=== PATIENT | female | born 1950 | race Caucasian/White ===

== ENCOUNTER 2017-11-14 17:38 | Emergency (ER) | payer OTHER, MEDICARE ==
[2017-11-14 17:59] VITALS: BP 132/87; PULSE 112; TEMP 99; BMI 23.6
[2017-11-14] MEDS ORDERED: SODIUM CHLORIDE 1,000 ML IV STA ×2 (19:54→19:56)
[2017-11-14] MEDS ORDERED: KETOROLAC TROMETHAMINE 30 MG/1 ML VIAL IVPUSH ONE (19:55)
[2017-11-14] MEDS ORDERED: PANTOPRAZOLE SODIUM 40 MG in SODIUM CHLORIDE 100 ML IVPB ONE (19:55)
[2017-11-14] MEDS ORDERED: ONDANSETRON 4 MG/2 ML VIAL IVPUSH STA (19:55)
--- NOTE | 2017-11-14 19:56 | PDOC ---
History of Present Illness - General History Source: Patient Exam Limitations: No Limitations - History of Present Illness Initial Comments: 11/14/17 20:04 The patient is a 66 year old female with a significant PMH of HTN, hyperlipidemia, and hypothyroidism who presents to the emergency department with abdominal pain, vomiting, and diarrhea beginning approximately this morning. She describes her abdominal pain as a cramping sensation with associated nausea. The patient reports she has been unable to tolerate solid PO today and has only drank some water. The patient denies any sick contacts. She denies fevers or chills. The patient denies chest pain, shortness of breath, headache, and dizziness. Denies dysuria, frequency, urgency and hematuria. Allergies: Codeine, Sulfonamide antibiotics. Past surgical history: Cholecystectomy. Spinal fusion. Social history: No reported cigarette, alcohol, or drug use. PCP: Dr. Rio Alford <Leobardo Lang - Last Filed: 11/14/17 20:04> - General History Source: Patient <Lowell Laura - Last Filed: 11/14/17 22:42> - General Chief Complaint: Pain Stated Complaint: S.O.B Time Seen by Provider: 11/14/17 19:46 Past History <Leobardo Lang - Last Filed: 11/14/17 20:04> - Past Medical History COPD: No HTN: Yes Hypercholesterolemia: Yes Thyroid Disease: Yes - Surgical History Cholecystectomy: Yes - Suicide/Smoking/Psychosocial Hx Smoking History: Never smoked Hx Alcohol Use: Yes (SOCIAL) Drug/Substance Use Hx: No <Lowell Laura - Last Filed: 11/14/17 22:42> - Past Medical History Allergies/Adverse Reactions: Allergies Allergy/AdvReac Type Severity Reaction Status Date / Time codeine Allergy Verified 11/14/17 17:59 Sulfa (Sulfonamide Allergy Verified 11/14/17 17:59 Antibiotics) Home Medications: Ambulatory Orders Ondansetron [Zofran *Odt*] 4 mg SL TID #30 od.tablet 11/14/17 Review of Systems - Review of Systems Able to Perform ROS?: Yes Comments:: 11/14/17 20:04 CONSTITUTIONAL: (+) Decreased appetite Absent: fever, chills, diaphoresis, generalized weakness, malaise HEENT: Absent: rhinorrhea, nasal congestion, throat pain, throat swelling, difficulty swallowing, mouth swelling, ear pain, eye pain, visual Changes CARDIOVASCULAR: Absent: chest pain, syncope, palpitations, irregular heart rate, lightheadedness , peripheral edema RESPIRATORY: Absent: cough, shortness of breath, dyspnea with exertion, orthopnea, wheezing, stridor, hemoptysis GASTROINTESTINAL: (+) Cramping abdominal pain. (+) Nausea. (+) Vomiting. (+) Diarrhea. Absent: abdominal distension, constipation, melena, hematochezia GENITOURINARY: Absent: dysuria, frequency, urgency, hesitancy, hematuria, flank pain, genital pain MUSCULOSKELETAL: Absent: myalgia, arthralgia, joint swelling SKIN: Absent: rash, itching, pallor HEMATOLOGIC/IMMUNOLOGIC: Absent: easy bleeding, easy bruising, lymphadenopathy, frequent infections ENDOCRINE: Absent: unexplained weight gain, unexplained weight loss, heat intolerance, cold intolerance NEUROLOGIC: Absent: headache, focal weakness or paresthesias, dizziness, unsteady gait, seizure, mental status changes, bladder or bowel incontinence PSYCHIATRIC: Absent: anxiety, depression, suicidal or homicidal ideation, hallucinations. <Leobardo Lang - Last Filed: 11/14/17 20:04> *Physical Exam - Vital Signs Last Vital Signs Temp Pulse Resp BP Pulse Ox 99.0 F 112 H 22 132/87 100 11/14/17 17:56 11/14/17 17:56 11/14/17 17:56 11/14/17 17:56 11/14/17 17:56 - Physical Exam Comments: 11/14/17 20:05 GENERAL: Well developed, well nourished. Awake and alert. No acute distress. HEENT: Normocephalic, atraumatic. PERRLA, EOMI. No conjunctival pallor. Sclera are non- icteric. Moist mucous membranes. Oropharynx is clear. NECK: Supple. Full ROM. No JVD. Carotid pulses 2+ and symmetric, without bruits. No thyromegaly. No lymphadenopathy. CARDIOVASCULAR: Regular rate and rhythm. No murmurs, rubs, or gallops. Distal pulses are 2+ and symmetric. PULMONARY: No evidence of respiratory distress. Lungs clear to auscultation bilaterally. No wheezing, rales or rhonchi. ABDOMINAL: (+) Mild diffuse abdominal tenderness Non-distended. No rebound or guarding. No organomegaly. Normoactive bowel sounds. MUSCULOSKELETAL Normal range of motion at all joints. No bony deformities or tenderness. No CVA tenderness. EXTREMITIES: No cyanosis. No clubbing. No edema. No calf tenderness. SKIN: Warm and dry. Normal capillary refill. No rashes. No jaundice. NEUROLOGICAL: Alert, awake, appropriate. Cranial nerves 2-12 intact. No deficits to light touch and temperature in face, upper extremities and lower extremities. No motor deficits in the in face, upper extremities and lower extremities. Normoreflexic in the upper and lower extremities. Normal speech. Toes are downgoing bilaterally. Gait is normal without ataxia. PSYCHIATRIC: Cooperative. Good eye contact. Appropriate mood and affect. <Leobardo Lang - Last Filed: 11/14/17 20:04> - Vital Signs Last Vital Signs Temp Pulse Resp BP Pulse Ox 99.0 F 112 H 22 132/87 100 11/14/17 17:56 11/14/17 17:56 11/14/17 17:56 11/14/17 17:56 11/14/17 17:56 <Lowell Laura - Last Filed: 11/14/17 22:42> ED Treatment Course - LABORATORY CBC & Chemistry Diagram: 11/14/17 20:31 11/14/17 20:31 <Lowell Laura - Last Filed: 11/14/17 22:42> Medical Decision Making - Medical Decision Making 11/14/17 22:41 Pt feels better after IVF hydration. Pt tolerated po fluids. Pt to be discharged. Dr. Laura: The scribe's documentation has been prepared under my direction and personally reviewed by me in its entirery. I confirm that the note above accurately reflects all work, treatment, procedures, and medical decision making performed by me. <Lowell Laura - Last Filed: 11/14/17 22:42> *DC/Admit/Observation/Transfer - Attestations Scribe Attestion: 11/14/17 20:05 Documentation prepared by Leobardo Lang, acting as phlebotomist medical lab assistant for Lowell Laura DO. <Leobardo Lang - Last Filed: 11/14/17 20:04> - Discharge Dispostion Admit: No <Lowell Laura - Last Filed: 11/14/17 22:42> Diagnosis at time of Disposition: Gastroenteritis - Discharge Dispostion Disposition: HOME Condition at time of disposition: Improved - Referrals Referrals: Rio Alford I [Primary Care Provider] - - Patient Instructions Printed Discharge Instructions: DI for Viral Gastroenteritis -- Adult - Post Discharge Activity
[2017-11-14] MEDS ORDERED: ONDANSETRON 4 MG/2 ML VIAL ONE (20:25)
[2017-11-14] MEDS ORDERED: KETOROLAC TROMETHAMINE 30 MG/1 ML VIAL ONE (20:25)
[2017-11-14] MEDS ORDERED: PANTOPRAZOLE SODIUM 40 MG VIAL ONE (20:26)
[2017-11-14 20:50] LABS: BASO % 0.3 % (0-2.0); EOS % 0.7 % (0-4.5); HEMATOCRIT 40.5 % (32.4-45.2); HEMOGLOBIN 13.6 GM/dL (10.7-15.3); LYMPH % 9.4 % (8-40); MCH 30.3 pg (25.7-33.7); MCHC 33.7 g/dl (32.0-36.0); MEAN CELL VOLUME 90.1 fl (80-96); MEAN PLT VOLUME 8.4 fl (7.5-11.1); MONO % 5.6 % (3.8-10.2); PLATELET COUNT 274 K/MM3 (134-434); RDW 14.5 % (11.6-15.6); WHITE BLOOD COUNT 12.8 K/mm3 (4.0-10.0)
[2017-11-14 20:55] LABS: URINE APPEARANCE CLEAR; URINE BILIRUBIN NEGATIVE (NEGATIVE); URINE BLOOD 1+ (NEGATIVE); URINE COLOR YELLOW; URINE GLUCOSE (UA) NEGATIVE (NEGATIVE); URINE KETONE TRACE (NEGATIVE); URINE LEUK ESTERASE TRACE (NEGATIVE); URINE NITRITE NEGATIVE (NEGATIVE); URINE PROTEIN NEGATIVE (NEGATIVE); URINE UROBILINOGEN NEGATIVE mg/dL (0.2-1.0)
[2017-11-14 21:03] LABS: EPI CELLS RARE /HPF (FEW); URINE MUCUS RARE
[2017-11-14 21:05] LABS: INR 1.04 (0.82-1.09); PROTHROMBIN TIME (PATIENT) 11.8 SEC (9.98-11.88)
[2017-11-14 21:38] LABS: ANION GAP 10 (8-16); BILIRUBIN,TOTAL 0.8 mg/dL (0.2-1.0); BLOOD UREA NITROGEN 20 mg/dL (7-18); CALCIUM 8.6 mg/dL (8.5-10.1); CHLORIDE 106 mmol/L (98-107); CO2 23 mmol/L (21-32); GLUCOSE,RANDOM 95 mg/dL (74-106); LIPASE 84 U/L (73-393); SODIUM 139 mmol/L (136-145); TOT PROT 7.6 g/dl (6.4-8.2)
[2017-11-14 21:42] LABS: ALK PHOS 101 U/L (45-117); CREATININE 0.8 mg/dL (0.55-1.02); MAGNESIUM 1.9 mg/dL (1.8-2.4)
[2017-11-14] MEDS ORDERED: DICYCLOMINE HCL 10 MG CAPSULE PO ONE (21:49)
[2017-11-14] MEDS ORDERED: DICYCLOMINE HCL 10 MG CAPSULE ONE (21:52)
[2017-11-14 21:55] LABS: SGOT/AST 24 U/L (15-37); SGPT/ALT 33 U/L (12-78)
== END 2017-11-14 22:47 | disposition home or self-care (01) ==
LOC: JER 17:38
PROC: 3E033GC Introduction of Other Therapeutic Substance into Peripheral Vein, Percutaneous Approach (ICD-10-PCS; principal; 2017-11-14)
PROC: 3E0337Z Introduction of Electrolytic and Water Balance Substance into Peripheral Vein, Percutaneous Approach (ICD-10-PCS; 2017-11-14)
PROC: 3E0233Z Introduction of Anti-inflammatory into Muscle, Percutaneous Approach (ICD-10-PCS; 2017-11-14)
DX: K52.9 Noninfective gastroenteritis and colitis, unspecified (principal)
CPT/HCPCS: 36415; 80053; 81003; 81015; 83690; 83735; 85025; 85610; 87086; 96361; 96365; 96375; 99282-25; J7030